=== PATIENT | male | born 1990 | race Caucasian/White ===

== ENCOUNTER 2021-01-12 15:41 | Emergency (ER) | payer OTHER ==
[~2021-01-12] VITALS: Ht 177.8 cm; Wt 93.0 kg
[2021-01-12 16:53] VITALS: BP 120/95
[2021-01-12] MEDS ORDERED: PROAIR HFA8.5 GM INH ×2 (17:02)
== END 2021-01-12 16:53 | disposition home or self-care (01) ==
LOC: ER 15:41
DX: J02.9 Acute pharyngitis, unspecified (principal); R05 Cough; J45.909 Unspecified asthma, uncomplicated; Z79.899 Other long term (current) drug therapy; Z20.822 Contact with and (suspected) exposure to COVID-19

== ENCOUNTER 2021-01-15 16:49 | Emergency (ER) | payer OTHER ==
[~2021-01-15] VITALS: Ht 177.8 cm; Wt 93.0 kg
[~2021-01-15 16:49] MED LIST: PROAIR HFA8.5 GM INH
[2021-01-15 17:58] LABS: WBC 10.7 thou/uL (4.0-11.0)
[2021-01-15 17:59] LABS: ABSOLUTE NEUTROPHILS 7.3 thou/uL (1.4-8.2); BASOPHILS 0.5 % (0.0-2.0); EOSINOPHILS 0.1 % (0.0-3.0); HEMATOCRIT 49.2 % (42.0-52.0); LYMPHOCYTES 14.3 % (24.0-44.0); MCH 30.1 pg (26.0-34.0); MCHC 34.6 g/dL (28.0-37.0); MCV 87.1 fL (80.0-100.0); MONOCYTES 16.9 % (1.0-8.0); PLATELET COUNT 221 thou/uL (150-400); POLYS 68.2 % (36.0-66.0); RBC 5.65 mil/uL (4.50-6.00); RDW 12.9 % (10.5-14.5)
[2021-01-15 18:13] LABS: ALBUMIN 3.2 g/dL (3.4-5.0); CALCIUM 8.7 mg/dL (8.5-10.1); CREATININE 1.1 mg/dL (0.7-1.3); TOTAL BILIRUBIN 0.5 mg/dL (0.2-1.0); TOTAL PROTEIN 8.6 g/dL (6.4-8.2)
[2021-01-15 18:19] LABS: POTASSIUM 2.8 mmol/L (3.5-5.1)
[2021-01-15] MEDS ORDERED: MAGIC MOUTHWASH SW&SWALLOW (19:38)
[2021-01-15] MEDS ORDERED: PREDNISONE 20 M20 MG PO (19:38)
[2021-01-15] MEDS ORDERED: K-DUR 20 MEQ T20 MEQ PO (19:38)
[2021-01-15 19:43] VITALS: BP 126/77
== END 2021-01-15 19:44 | disposition home or self-care (01) ==
LOC: ER 16:49
PROVIDERS: Physician Assistant
DX: J03.90 Acute tonsillitis, unspecified (principal); E87.6 Hypokalemia; J45.909 Unspecified asthma, uncomplicated; Z79.899 Other long term (current) drug therapy

== ENCOUNTER 2021-10-07 16:37 | Emergency (ER) | payer OTHER ==
[~2021-10-07] VITALS: Ht 177.8 cm; Wt 81.7 kg
[~2021-10-07 16:37] MED LIST changes: +K-DUR 20 MEQ T20 MEQ PO; +MAGIC MOUTHWASH SW&SWALLOW; +PREDNISONE 20 M20 MG PO
[2021-10-07 16:53] VITALS: BP 130/56
== END 2021-10-07 18:23 | disposition home or self-care (01) ==
LOC: ER 16:37
PROVIDERS: Emergency Medicine
DX: J06.9 Acute upper respiratory infection, unspecified (principal); Z20.822 Contact with and (suspected) exposure to COVID-19; J45.909 Unspecified asthma, uncomplicated; Z79.899 Other long term (current) drug therapy